=== PATIENT | female | born 2005 | race Caucasian/White ===

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

== ENCOUNTER 2024-04-28 02:46 | Emergency (ER) | payer OTHER ==
--- NOTE | 2024-04-28 03:07 | ED ---
General Adult HPI - General Source: patient, RN notes reviewed, old records reviewed Mode of arrival: ambulatory Limitations: no limitations <Toro Castro - Last Filed: 04/28/24 04:04> <Freddie Abdullahi - Last Filed: 04/28/24 15:48> - General Chief complaint: Vaginal Bleeding Stated complaint: vaginal bleeding Time Seen by Provider: 04/28/24 02:49 - History of Present Illness Initial comments: 18-year-old female presenting with vaginal bleeding. Patient states that she is approximately 12 weeks . She has had a ultrasound performed as an outpatient which she states confirmed intrauterine . She has not yet followed with obstetrics this was performed at a center. Patient states that this evening she developed vaginal bleeding after intercourse. No abdominal pain. No other symptoms reported. (Toro Castro) - Related Data Home Medications Medication Instructions Recorded Confirmed Methylphenidate HCl [Concerta] 54 mg PO DAILY 10/18/15 10/18/15 Previous Rx's Medication Instructions Recorded Azithromycin [Zithromax] 5 ml PO DIRECTED #20 ml 10/18/15 Allergies Allergy/AdvReac Type Severity Reaction Status Date / Time No Known Allergies Allergy Verified 04/28/24 02:49 Review of Systems ROS Other: All systems not noted in ROS Statement are negative. <Toro Castro - Last Filed: 04/28/24 04:04> ROS Other: All systems not noted in ROS Statement are negative. <Freddie Abdullahi - Last Filed: 04/28/24 15:48> ROS Statement: Those systems with pertinent positive or pertinent negative responses have been documented in the HPI. Past Medical History Past Medical History: No Reported History Additional Past Medical History / Comment(s): bipolar ptsd History of Any Multi-Drug Resistant Organisms: None Reported Past Surgical History: No Surgical Hx Reported Past Psychological History: ADD/ADHD, Bipolar, Depression, PTSD Smoking Status: Never smoker Past Alcohol Use History: None Reported Past Drug Use History: None Reported <Toro Castro - Last Filed: 04/28/24 04:04> General Exam Limitations: no limitations General appearance: alert, in no apparent distress Head exam: Present: atraumatic, normocephalic Eye exam: Present: normal appearance, PERRL ENT exam: Present: normal exam Neck exam: Present: normal inspection. Absent: tenderness, meningismus Respiratory exam: Present: normal lung sounds bilaterally. Absent: respiratory distress, wheezes Cardiovascular Exam: Present: regular rate, normal rhythm GI/Abdominal exam: Present: soft. Absent: distended, tenderness, guarding, rebound Extremities exam: Present: normal inspection, normal capillary refill Neurological exam: Present: alert, oriented X3 Psychiatric exam: Present: normal affect, normal mood Skin exam: Present: warm, dry, intact, normal color. Absent: pallor <Toro Catsro - Last Filed: 04/28/24 04:04> Course Vital Signs 04/28/24 04/28/24 04/28/24 02:47 03:31 04:30 Temperature 98.3 F Pulse Rate 87 77 79 Respiratory 18 19 18 Rate Blood Pressure 129/85 113/77 112/74 O2 Sat by Pulse 100 98 99 Oximetry 04/28/24 04/28/24 06:01 09:14 Temperature 98.1 F 98.1 F Pulse Rate 79 97 Respiratory 18 17 Rate Blood Pressure 101/62 112/79 O2 Sat by Pulse 100 98 Oximetry Medical Decision Making - Lab Data Result diagrams: 04/28/24 03:14 04/28/24 03:14 <Toro Castro - Last Filed: 04/28/24 04:04> - Lab Data Result diagrams: 04/28/24 03:14 04/28/24 03:14 <Freddie Abdullahi - Last Filed: 04/28/24 15:48> - Medical Decision Making Was pt. sent in by a medical professional or institution (, PA, PHARMACEUTICAL WORKER, urgent care, hospital, or detention...) When possible be specific @ -No Did you speak to anyone other than the patient for history (EMS, parent, family, police, friend...)? What history was obtained from this source @ -No Did you review nursing and triage notes (agree or disagree)? Why? @ -I reviewed and agree with nursing and triage notes Were old charts reviewed (outside hosp., previous admission, EMS record, old EKG, old radiological studies, urgent care reports/EKG's, detention records)? Report findings @ -No old charts were reviewed Differential Vaginal Bleeding: Spontaneous , threatened , molar , ectopic , bloody show, incompetent cervix, abruptioplacenta, placenta previa, uterine rupture, dysfunctional uterine bleeding, hemorrhage, uterine fibroids, this is not meant to be an all-inclusive list. EKG interpreted by me (3pts min.). @ -As above X-rays interpreted by me (1pt min.). @ -None done CT interpreted by me (1pt min.). @ -None done U/S interpreted by me (1pt. min.). @ -Ultrasound ordered, results pending What testing was considered but not performed or refused? (CT, X-rays, U/S, labs)? Why? @ -None What meds were considered but not given or refused? Why? @ -None Did you discuss the management of the patient with other professionals (professionals i.e. , PA, PHARMACEUTICAL WORKER, lab, RT, psych nurse, social insurance adviser, vehicle check in clerk, teacher, chief creative officer, case worker)? Give summary @ -No Was smoking cessation discussed for >3mins.? @ -No Was critical care preformed (if so, how long)? @ -No Were there social determinants of health that impacted care today? How? (Homelessness, low income, unemployed, alcoholism, drug addiction, t ransportation, low edu. Level, literacy, decrease access to med. care, retirement, rehab)? @ -No Was there de-escalation of care discussed even if they declined (Discuss DNR or withdrawal of care, Hospice)? DNR status @ -No What co-morbidities impacted this encounter? (DM, HTN, Smoking, COPD, CAD, Cance r, CVA, ARF, Chemo, Hep., AIDS, mental health diagnosis, sleep apnea, morbid obesity)? @ -None Was patient admitted / discharged? Hospital course, mention meds given and route, prescriptions, significant lab abnormalities, going to OR and other pertinent info. @ -[18-year-old female stating she is approximately 12 weeks with vaginal bleeding. Patient has a negative blood and does require RhoGAM. Hemoglobin is stable. Laboratory testing is otherwise unremarkable. Ultrasound has been ordered awaiting this study. Care [facility] shift [facility] Patient signed out to me pending results of ultrasound. Patient is a 18-year-old female who presents with vaginal spotting and bleeding. She is approximately 12 weeks . G2, P0. Prior elective . Denies any other acute complaints. Presents for further evaluation. Workup so far shows normal laboratory studies. Beta-hCG is 25,000. Ultrasound is interpreted by myself reveals an intrauterine however it appears to be possible demise as it does not have a heart rate, and it is only measuring at 8 weeks. Patient had a prior ultrasound at 6 weeks which measured at 6 weeks gestational age. I discussed with the patient. Discussed that it appears she had a missed as well as intrauterine demise. She has no CAREER DEVELOPMENT ENGINEER follow-up. I spoke with Dr. Washington on the phone who recommended patient be discharged home, follow-up with her in the office on Friday. If worsening bleeding or uncomfortable with the amount of bleeding patient can return to the emergency department. Cussed this with the patient and she was in agreement this plan. Patient be discharged home at this time. Strict return precautions discussed. I did overemphasize the need to follow-up with Dr. Washington as even if she has her miscarriage she needs to follow-up with CAREER DEVELOPMENT ENGINEER. She expressed understanding. I instructed the patient to follow up with their PCP in the next 1-3 days. I provided contact information for follow up with Dr. Washington. I explained that the patient should return to the emergency department if they experience any wo rsening symptoms. Strict return precautions were discussed with the patient. The patient expressed understanding of these instructions. I answered all questions that the patient had. The patient was discharged home in good condition with their prescriptions and follow up information. Diagnosis/symptom? @ -Intrauterine demise, missed /miscarriage Acute, or Chronic, or Acute on Chronic? @ -Acute Uncomplicated (without systemic symptoms) or Complicated (systemic symptoms)? @ -Complicated Side effects of treatment? @ -None Exacerbation, Progression, or Severe Exacerbation] @ -No Poses a threat to life or bodily function? @ -Potentially, yes if not addressed. (Frdedie Abdullahi) - Lab Data Lab Results 04/28/24 04/28/24 04/28/24 Range/Units 03:00 03:00 03:14 WBC 7.7 (4.0-11.0) k/uL RBC 4.58 (3.80-5.40) m/uL Hgb 13.5 (11.4-16.0) gm/dL Hct 39.2 (34.0-46.0) % MCV 85.5 (80.0-100.0) fL MCH 29.5 (25.0-35.0) pg MCHC 34.5 (31.0-37.0) g/dL RDW 12.8 (11.5-15.5) % Plt Count 260 (150-450) k/uL MPV 7.6 Neutrophils % 50 % Lymphocytes % 39 % Monocytes % 7 % Eosinophils % 1 % Basophils % 0 % Neutrophils # 3.9 (1.3-7.7) k/uL Lymphocytes # 3.0 (1.0-4.8) k/uL Monocytes # 0.5 (0-1.0) k/uL Eosinophils # 0.1 (0-0.7) k/uL Basophils # 0.0 (0-0.2) k/uL Sodium (137-145) mmol/L Potassium (3.5-5.1) mmol/L Chloride (98-107) mmol/L Carbon Dioxide (22-30) mmol/L Anion Gap mmol/L BUN (7-17) mg/dL Creatinine (0.52-1.04) mg/dL Est GFR (CKD-EPI)AfAm (>60 ml/min/1.73 sqM) Est GFR (CKD-EPI)NonAf (>60 ml/min/1.73 sqM) Glucose (74-99) mg/dL Calcium (8.4-10.2) mg/dL Total Bilirubin (0.2-1.3) mg/dL AST (14-36) U/L ALT (4-34) U/L Alkaline Phosphatase (38-126) U/L Total Protein (6.3-8.2) g/dL Albumin (3.5-5.0) g/dL HCG, Quant mIU/mL Urine Color Urine Appearance (Clear) Urine pH (5.0-8.0) Ur Specific [place] (1.001-1.035) Urine Protein (Negative) Urine Glucose (UA) (Negative) Urine Ketones (Negative) Urine Blood (Negative) Urine Nitrite (Negative) Urine Bilirubin (Negative) Urine Urobilinogen (<2.0) mg/dL Ur Leukocyte Esterase (Negative) Urine RBC (0-5) /hpf Ur Squamous Epith Cells (0-4) /hpf Urine Bacteria (None) /hpf Urine Mucus (None) /hpf Blood Type A Negative Blood Type Recheck No Previous Record Bld Type Recheck Status ABR ONLY Antibody Screen NEGATIVE 04/28/24 04/28/24 Range/Units 03:14 03:31 WBC (4.0-11.0) k/uL RBC (3.80-5.40) m/uL Hgb (11.4-16.0) gm/dL Hct (34.0-46.0) % MCV (80.0-100.0) fL MCH (25.0-35.0) pg MCHC (31.0-37.0) g/dL RDW (11.5-15.5) % Plt Count (150-450) k/uL MPV Neutrophils % % Lymphocytes % % Monocytes % % Eosinophils % % Basophils % % Neutrophils # (1.3-7.7) k/uL Lymphocytes # (1.0-4.8) k/uL Monocytes # (0-1.0) k/uL Eosinophils # (0-0.7) k/uL Basophils # (0-0.2) k/uL Sodium 137 (137-145) mmol/L Potassium 4.0 (3.5-5.1) mmol/L Chloride 109 H (98-107) mmol/L Carbon Dioxide 22 (22-30) mmol/L Anion Gap 6 mmol/L BUN 8 (7-17) mg/dL Creatinine 0.50 L (0.52-1.04) mg/dL Est GFR (CKD-EPI)AfAm >90 (>60 ml/min/1.73 sqM) Est GFR (CKD-EPI)NonAf >90 (>60 ml/min/1.73 sqM) Glucose 96 (74-99) mg/dL Calcium 9.6 (8.4-10.2) mg/dL Total Bilirubin 0.4 (0.2-1.3) mg/dL AST 24 (14-36) U/L ALT 10 (4-34) U/L Alkaline Phosphatase 45 (38-126) U/L Total Protein 7.4 (6.3-8.2) g/dL Albumin 4.6 (3.5-5.0) g/dL HCG, Quant 20934.1 mIU/mL Urine Color Colorless Urine Appearance Clear (Clear) Urine pH 6.5 (5.0-8.0) Ur Specific [place] 1.017 (1.001-1.035) Urine Protein Negative (Negative) Urine Glucose (UA) Negative (Negative) Urine Ketones Negative (Negative) Urine Blood Moderate H (Negative) Urine Nitrite Negative (Negative) Urine Bilirubin Negative (Negative) Urine Urobilinogen <2.0 (<2.0) mg/dL Ur Leukocyte Esterase Negative (Negative) Urine RBC 12 H (0-5) /hpf Ur Squamous Epith Cells <1 (0-4) /hpf Urine Bacteria Rare H (None) /hpf Urine Mucus Rare H (None) /hpf Blood Type Blood Type Recheck Bld Type Recheck Status Antibody Screen Disposition <Toro Castro - Last Filed: 04/28/24 04:04> Is patient prescribed a controlled substance at d/c from ED?: No Time of Disposition: 08:30 <Freddie Abdullahi - Last Filed: 04/28/24 15:48> Clinical Impression: demise, Missed Disposition: HOME SELF-CARE Condition: Fair Additional Instructions: You have intrauterine demise with missed miscarriage. You can expect continued vaginal spotting and bleeding and may miscarry. You must follow-up with CAREER DEVELOPMENT ENGINEER no matter what. Please return if concerned regarding the bleeding. Please follow-up with Dr. Washington on Friday next week.The date for follow-up is May 03, 2024. Return if any worsening symptoms. Referrals: None,Stated [Primary Care Provider] - 1-2 days Cnocetta Washington DO [Doctor of Osteopathic Medicine] - 1-2 days
[2024-04-28 03:25] LABS: Basophils % (A) 0 %; Eosinophils # (A) 0.1 k/uL (0-0.7); Eosinophils % (A) 1 %; HCT 39.2 % (34.0-46.0); HGB 13.5 gm/dL (11.4-16.0); Lymphocytes % (A) 39 %; MCH 29.5 pg (25.0-35.0); MCHC 34.5 g/dL (31.0-37.0); MCV 85.5 fL (80.0-100.0); Mean Platelet Volume 7.6; Monocytes # (A) 0.5 k/uL (0-1.0); Monocytes % (A) 7 %; Neutrophils # (A) 3.9 k/uL (1.3-7.7); Neutrophils % (A) 50 %; Platelet Count 260 k/uL (150-450); RBC 4.58 m/uL (3.80-5.40); RDW 12.8 % (11.5-15.5); WBC 7.7 k/uL (4.0-11.0)
[2024-04-28 03:36] LABS: ALT 10 U/L (4-34); AST 24 U/L (14-36); African American GFR (CKD) >90 (>60 ml/min/1.73 sqM); Albumin 4.6 g/dL (3.5-5.0); Alkaline Phosphatase 45 U/L (38-126); Anion Gap 6 mmol/L; Blood Urea Nitrogen 8 mg/dL (7-17); Calcium 9.6 mg/dL (8.4-10.2); Carbon Dioxide 22 mmol/L (22-30); Chloride 109 mmol/L (98-107); Glucose 96 mg/dL (74-99); Non-African American GFR(CKD) >90 (>60 ml/min/1.73 sqM); Sodium 137 mmol/L (137-145); Total Bilirubin 0.4 mg/dL (0.2-1.3); Total Protein 7.4 g/dL (6.3-8.2)
[2024-04-28 03:39] LABS: Appearance,Urine Clear (Clear); Bacteria,Urine Rare /hpf; Bilirubin,Urine Negative (Negative); Blood,Urine Moderate (Negative); Color,Urine Colorless; Glucose,Urine (UA) Negative (Negative); Ketones,Urine Negative (Negative); Leukocyte Esterase,Urine Negative (Negative); Mucus,Urine Rare /hpf; Nitrite,Urine Negative (Negative); PH, Urine 6.5 (5.0-8.0); Protein,Urine Negative (Negative); RBC,Urine 12 /hpf (0-5); Specific Gravity,Urine 1.017 (1.001-1.035); Squamous Epithelial Cell,Urine <1 /hpf (0-4); Urobilinogen,Urine <2.0 mg/dL (<2.0)
[2024-04-28 04:28] LABS: HCG,Quantitative Serum 25287.1 mIU/mL
[2024-04-28] MEDS: Rhogam IMMUNE GLOBULIN 1,500 UNIT/1 ML IM ONE (04:52)
[2024-04-28 06:04] VITALS: TEMP 98.1
--- NOTE | 2024-04-28 07:48 | US ---
EXAMINATION TYPE: Transabdominal DATE OF EXAM: 04/28/2024 7:32 AM COMPARISON: NONE CLINICAL INDICATION: Female, 18 years old with history of Vaginal bleeding in ; Bleeding sin ce yesterday. G1. Patient thinks she is about 12-13 weeks . TECHNIQUE: Transvaginal (TV) and Transabdominal (TA) with grayscale and color Doppler imaging includi ng first trimester . FINDINGS: EXAM MEASUREMENTS: GESTATIONAL AGE / DATING Physician Established: Unknown Dates by LMP: Unknown Dates by First Scan: This is first scan at this facility. Dates by Current Scan for: (8 weeks/0 days) EDC: 12/08/2024 - by CRL measurement. No heart tones seen. MATERNAL ANATOMY Uterus: 10.6 x 8.3 x 6.3 cm. Subcentimeter anechoic areas in cervix. Right Ovary: 3.1 x 1.5 x 2.1 cm Left Ovary: 3.5 x 1.9 x 1.2 cm Post CDS / Adnexa: Appear wnl Presence of free fluid: None seen Presence of corpus luteal cyst: not seen Presence of subchorionic bleed: Complex area seen adjacent to the gestational sac: 1.2 x 0.8 x 1.3 cm transvaginal measurement. GESTATION / SURVEY CRL: 1.56 cm (8 weeks/0 days) MSD: 4.55 cm (10 weeks/3 days). Appears slightly irregular. Yolk Sac (normal less than 6mm): not seen Heart Rate: Not visualized IUP: No heart tones seen at this time within pole. Date of LMP: unknown Beta HcG (if available): 25,287.1 mIU/mL IMPRESSION: Intrauterine with ultrasound age of 8 weeks 0 days by crown-rump length. heart rate i s not detected at this time, concerning for demise. Close clinical follow-up with serial beta h CG and short-term follow-up ultrasound is recommended. [facility], , 04/28/2024 7:45 AM
[2024-04-28 09:21] VITALS: BP 112/79; PULSE 97; RESP 17
== END 2024-04-28 09:22 | disposition home or self-care (01) ==
LOC: EC 02:46
CPT/HCPCS: 36415; 76801; 76817; 80053; 81001; 84702; 85025; 86850; 86900; 86901; 96372; 99284

== ENCOUNTER 2024-05-14 17:52 | Emergency (ER) | payer SELFPAY ==
[2024-05-14 18:04] VITALS: TEMP 98.3
--- NOTE | 2024-05-14 18:40 | ED ---
Female Urogenital HPI - General Chief complaint: Vaginal Bleeding Stated complaint: Vaginal bleeding Time Seen by Provider: 05/14/24 18:12 Source: patient, RN notes reviewed Mode of arrival: ambulatory Limitations: no limitations - History of Present Illness Initial comments: 18-year-old female presenting to the ER for vaginal bleeding x [address] [facility] she was seen in the ER 2 weeks ago where she was told she was having a miscarriage. Patient had mild spotting at that time however reports over the past day bleeding has increased and is now bleeding through approximately 1 pad every 4 hours. Also admits some pelvic cramping over the past few days. - Related Data Home Medications Medication Instructions Recorded Confirmed Methylphenidate HCl [Concerta] 54 mg PO DAILY 10/18/15 10/18/15 Previous Rx's Medication Instructions Recorded Azithromycin [Zithromax] 5 ml PO DIRECTED #20 ml 10/18/15 Allergies Allergy/AdvReac Type Severity Reaction Status Date / Time No Known Allergies Allergy Verified 04/28/24 02:49 Review of Systems ROS Statement: Those systems with pertinent positive or pertinent negative responses have been documented in the HPI. ROS Other: All systems not noted in ROS Statement are negative. Past Medical History Past Medical History: No Reported History Additional Past Medical History / Comment(s): bipolar ptsd, miscarriage Apr 2024 History of Any Multi-Drug Resistant Organisms: None Reported Past Surgical History: No Surgical Hx Reported Past Psychological History: ADD/ADHD, Bipolar, Depression, PTSD Smoking Status: Never smoker Past Alcohol Use History: None Reported Past Drug Use History: None Reported General Exam Limitations: no limitations General appearance: alert, in no apparent distress Head exam: Present: atraumatic, normocephalic, normal inspection GI/Abdominal exam: Present: soft, normal bowel sounds. Absent: distended, tenderness, guarding, rebound, rigid Neurological exam: Present: alert, oriented X3 Psychiatric exam: Present: normal affect, normal mood Skin exam: Present: warm, dry, intact, normal color. Absent: rash Course Vital Signs 05/14/24 05/14/24 05/14/24 18:01 20:15 21:54 Temperature 98.3 F Pulse Rate 101 H 98 64 Respiratory 18 16 16 Rate Blood Pressure 120/74 108/74 110/62 O2 Sat by Pulse 100 100 98 Oximetry Medical Decision Making - Medical Decision Making Was pt. sent in by a medical professional or institution (VAUGHN Montero, [employer], urgent care, hospital, or care home...) When possible be specific @ -No Did you speak to anyone other than the patient for history (EMS, parent, family, police, friend...)? What history was obtained from this source @ -No Did you review nursing and triage notes (agree or disagree)? Why? @ -I reviewed and agree with nursing and triage notes Were old charts reviewed (outside hosp., previous admission, EMS record, old EKG, old radiological studies, urgent care reports/EKG's, care home records)? Report findings @ -No old charts were reviewed Differential Diagnosis (chest pain, altered mental status, abdominal pain women, abdominal pain men, vaginal bleeding, weakness, fever, dyspnea, syncope, headache, dizziness, GI bleed, back pain, seizure, CVA, palpatations, mental health, musculoskeletal)? @ -Differential Vaginal Bleeding: Spontaneous , threatened , molar , ectopic , bloody show, incompetent cervix, abruptioplacenta, placenta previa, uterine rupture, dysfunctional uterine bleeding, hemorrhage, uterine fibroids, this is not meant to be an all-inclusive list. EKG interpreted by me (3pts min.). @ -None X-rays interpreted by me (1pt min.). @ -None done CT interpreted by me (1pt min.). @ -None done U/S interpreted by me (1pt. min.). @ -Ultrasound pelvis reveals heterogeneous and thickened endometrium without evidence for intrauterine sac What testing was considered but not performed or refused? (CT, X-rays, U/S, labs)? Why? @ -None What meds were considered but not given or refused? Why? @ -RhoGAM not given as it was given 2 weeks ago Did you discuss the management of the patient with other professionals (professionals i.e. VAUGHN Montero, [employer]OC[employer], lab, RT, psych nurse, social work program coordinator, software designer, teacher, customer service security officer, showcase maker)? Give summary @ -No Was smoking cessation discussed for >3mins.? @ -No Was critical care preformed (if so, how long)? @ -No Were there social determinants of health that impacted care today? How? (Homelessness, low income, unemployed, alcoholism, drug addiction, transportation, low edu. Level, literacy, decrease access to med. care, long-term, rehab)? @ -No Was there de-escalation of care discussed even if they declined (Discuss DNR or withdrawal of care, Hospice)? DNR status @ -No What co-morbidities impacted this encounter? (DM, HTN, Smoking, COPD, CAD, Cancer, CVA, ARF, Chemo, Hep., AIDS, mental health diagnosis, sleep apnea, m orbid obesity)? @ -None Was patient admitted / discharged? Hospital course, mention meds given and r oute, prescriptions, significant lab abnormalities, going to OR and other pertinent info. @ -Discharged. This is a 18-year-old female presenting with vaginal bleeding in . Patient was seen in ER when this began 2 weeks ago and was diagnosed with a miscarriage. States vaginal bleeding has been increasing in severity over the past day. No red flag symptoms. Vital signs are within accep table limits. Abdomen is soft and nontender. Lab work including CBC, CMP, lactic unremarkable. Hemoglobin stable at 13.3. Beta hCG 2796 today, significantly decreased from 25,287 on 1016. Urinalysis reveals large amount of blood. Pelvic ultrasound reveals heterogeneous and thickened endometrium without evidence for intrauterine sac. Results discussed with patient. Diagnosis of threatened miscarriage discussed with patient. Advise close follow-up with OB next week to trend hCG levels down to 0 and repeat ultrasound in 1 week. Return precautions and supportive care discussed and patient is agreeable to plan. Case was discussed with my ED attending Dr. Gallardo. Patient discharged in stable condition. Undiagnosed new problem with uncertain prognosis? @ -No Drug Therapy requiring intensive monitoring for toxicity (Heparin, Nitro, Insulin, Cardizem)? @ -No Were any procedures done? @ -No Diagnosis/symptom? @ -Threatened Acute, or Chronic, or Acute on Chronic? @ -Acute Uncomplicated (without systemic symptoms) or Complicated (systemic symptoms)? @ -Uncomplicated Side effects of treatment? @ -No Exacerbation, Progression, or Severe Exacerbation? @ -No Poses a threat to life or bodily function? How? (Chest pain, USA, LA, pneumonia, PE, COPD, DKA, ARF, appy, cholecystitis, CVA, Diverticulitis, Homicidal, Suicidal, threat to staff... and all critical care pts) @ -No - Lab Data Result diagrams: 05/14/24 18:51 05/14/24 18:51 Lab Results 05/14/24 05/14/24 05/14/24 Range/Units 18:51 18:51 18:51 WBC 8.2 (4.0-11.0) k/uL RBC 4.49 (3.80-5.40) m/uL Hgb 13.3 (11.4-16.0) gm/dL Hct 38.7 (34.0-46.0) % MCV 86.1 (80.0-100.0) fL MCH 29.5 (25.0-35.0) pg MCHC 34.3 (31.0-37.0) g/dL RDW 12.3 (11.5-15.5) % Plt Count 264 (150-450) k/uL MPV 7.6 Neutrophils % 73 % Lymphocytes % 19 % Monocytes % 5 % Eosinophils % 1 % Basophils % 0 % Neutrophils # 6.0 (1.3-7.7) k/uL Lymphocytes # 1.6 (1.0-4.8) k/uL Monocytes # 0.4 (0-1.0) k/uL Eosinophils # 0.1 (0-0.7) k/uL Basophils # 0.0 (0-0.2) k/uL Sodium 138 (137-145) mmol/L Potassium 3.9 (3.5-5.1) mmol/L Chloride 110 H (98-107) mmol/L Carbon Dioxide 23 (22-30) mmol/L Anion Gap 5 mmol/L BUN 7 (7-17) mg/dL Creatinine 0.49 L (0.52-1.04) mg/dL Est GFR (CKD-EPI)AfAm >90 (>60 ml/min/1.73 sqM) Est GFR (CKD-EPI)NonAf >90 (>60 ml/min/1.73 sqM) Glucose 93 (74-99) mg/dL Plasma Lactic Acid Juan [place] (0.7-2.0) mmol/L Calcium 9.0 (8.4-10.2) mg/dL Total Bilirubin 0.6 (0.2-1.3) mg/dL AST 26 (14-36) U/L ALT 13 (4-34) U/L Alkaline Phosphatase 50 (38-126) U/L Total Protein 7.1 (6.3-8.2) g/dL Albumin 4.4 (3.5-5.0) g/dL HCG, Quant 2796.0 mIU/mL Urine Color Urine Appearance (Clear) Urine pH (5.0-8.0) Ur Specific [place] (1.001-1.035) Urine Protein (Negative) Urine Glucose (UA) (Negative) Urine Ketones (Negative) Urine Blood (Negative) Urine Nitrite (Negative) Urine Bilirubin (Negative) Urine Urobilinogen (<2.0) mg/dL Ur Leukocyte Esterase (Negative) Urine RBC (0-5) /hpf Urine WBC (0-5) /hpf Ur Squamous Epith Cells (0-4) /hpf Urine Mucus (None) /hpf Blood Type A Negative Blood Type Recheck A Neg Bld Type Recheck Status No 05/14/24 05/14/24 Range/Units 18:51 18:51 WBC (4.0-11.0) k/uL RBC (3.80-5.40) m/uL Hgb (11.4-16.0) gm/dL Hct (34.0-46.0) % MCV (80.0-100.0) fL MCH (25.0-35.0) pg MCHC (31.0-37.0) g/dL RDW (11.5-15.5) % Plt Count (150-450) k/uL MPV Neutrophils % % Lymphocytes % % Monocytes % % Eosinophils % % Basophils % % Neutrophils # (1.3-7.7) k/uL Lymphocytes # (1.0-4.8) k/uL Monocytes # (0-1.0) k/uL Eosinophils # (0-0.7) k/uL Basophils # (0-0.2) k/uL Sodium (137-145) mmol/L Potassium (3.5-5.1) mmol/L Chloride (98-107) mmol/L Carbon Dioxide (22-30) mmol/L Anion Gap mmol/L BUN (7-17) mg/dL Creatinine (0.52-1.04) mg/dL Est GFR (CKD-EPI)AfAm (>60 ml/min/1.73 sqM) Est GFR (CKD-EPI)NonAf (>60 ml/min/1.73 sqM) Glucose (74-99) mg/dL Plasma Lactic Acid [place] 0.6 L (0.7-2.0) mmol/L Calcium (8.4-10.2) mg/dL Total Bilirubin (0.2-1.3) mg/dL AST (14-36) U/L ALT (4-34) U/L Alkaline Phosphatase (38-126) U/L Total Protein (6.3-8.2) g/dL Albumin (3.5-5.0) g/dL HCG, Quant mIU/mL Urine Color Light Red Urine Appearance Cloudy H (Clear) Urine pH 7.0 (5.0-8.0) Ur Specific [place] 1.024 (1.001-1.035) Urine Protein Trace H (Negative) Urine Glucose (UA) Negative (Negative) Urine Ketones Negative (Negative) Urine Blood Large H (Negative) Urine Nitrite Negative (Negative) Urine Bilirubin Negative (Negative) Urine Urobilinogen 2.0 (<2.0) mg/dL Ur Leukocyte Esterase Small H (Negative) Urine RBC >182 H (0-5) /hpf Urine WBC 4 (0-5) /hpf Ur Squamous Epith Cells 3 (0-4) /hpf Urine Mucus Few H (None) /hpf Blood Type Blood Type Recheck Bld Type Recheck Status Disposition Clinical Impression: Threatened Disposition: HOME SELF-CARE Condition: Stable Instructions (If sedation given, give patient instructions): Threatened Miscarriage (ED) Additional Instructions: Follow-up with Dr. Washington on Friday. Please return to the Emergency Department if symptoms worsen or any other concerns. Is patient prescribed a controlled substance at d/c from ED?: No Referrals: None,Stated [Primary Care Provider] - 1-2 days Time of Disposition: 21:41
--- NOTE | 2024-05-14 19:57 | US ---
EXAMINATION TYPE: Transabdominal DATE OF EXAM: 05/14/2024 7:21 PM COMPARISON: US CLINICAL INDICATION: Female, 18 years old with history of vaginal bleeding in ; Pt states he janine vaginal bleeding with clots that started today/ pt had probable demise on prior ultrasound 2 weeks ago TECHNIQUE: Transabdominal (TA) with grayscale and color Doppler imaging including first trimester pre gnancy. FINDINGS: EXAM MEASUREMENTS: GESTATIONAL AGE / DATING Physician Established: Not yet established Dates by LMP: LMP unknown Dates by First Scan: (10 weeks/2 days) EDC: 12/08/2024 Dates by Current Scan for: No IUP seen at this time MATERNAL ANATOMY Uterus: 7.5 x 4.9 x 5.8 cm Right Ovary: 2.6 x 1.7 x 2.1 cm Left Ovary: 2.3 x 1.0 x 2.6 cm Post CDS / Adnexa: wnl Presence of free fluid: No GESTATION / SURVEY IUP: No IUP seen at this time Date of LMP: Unknown Beta HcG (if available): Not available at this time No evidence of IUP- endo thickness= 2.5 cm, thickened and heterogeneous without evidence of increas ed blood flow IMPRESSION: Heterogenous and thickened endometrium without evidence for intrauterine gestational sac given patien t reported dates of 10 weeks 2 days findings most compatible with demise with retained products of conception. Close clinical follow-up with serial beta hCG recommended. [facility], Workstation: [id number], 05/14/2024 7:54 PM
[2024-05-14 19:58] LABS: Basophils % (A) 0 %; Eosinophils # (A) 0.1 k/uL (0-0.7); Eosinophils % (A) 1 %; HCT 38.7 % (34.0-46.0); HGB 13.3 gm/dL (11.4-16.0); Lymphocytes # (A) 1.6 k/uL (1.0-4.8); Lymphocytes % (A) 19 %; MCH 29.5 pg (25.0-35.0); MCHC 34.3 g/dL (31.0-37.0); MCV 86.1 fL (80.0-100.0); Mean Platelet Volume 7.6; Monocytes # (A) 0.4 k/uL (0-1.0); Monocytes % (A) 5 %; Neutrophils % (A) 73 %; Platelet Count 264 k/uL (150-450); RBC 4.49 m/uL (3.80-5.40); RDW 12.3 % (11.5-15.5); WBC 8.2 k/uL (4.0-11.0)
[2024-05-14 20:16] VITALS: RESP 16
[2024-05-14 20:21] LABS: ALT 13 U/L (4-34); AST 26 U/L (14-36); African American GFR (CKD) >90 (>60 ml/min/1.73 sqM); Albumin 4.4 g/dL (3.5-5.0); Alkaline Phosphatase 50 U/L (38-126); Anion Gap 5 mmol/L; Blood Urea Nitrogen 7 mg/dL (7-17); Carbon Dioxide 23 mmol/L (22-30); Chloride 110 mmol/L (98-107); Glucose 93 mg/dL (74-99); Non-African American GFR(CKD) >90 (>60 ml/min/1.73 sqM); Potassium 3.9 mmol/L (3.5-5.1); Sodium 138 mmol/L (137-145); Total Bilirubin 0.6 mg/dL (0.2-1.3); Total Protein 7.1 g/dL (6.3-8.2)
[2024-05-14 20:25] LABS: Appearance,Urine Cloudy (Clear); Bilirubin,Urine Negative (Negative); Blood,Urine Large (Negative); Color,Urine Light Red; Glucose,Urine (UA) Negative (Negative); Ketones,Urine Negative (Negative); Leukocyte Esterase,Urine Small (Negative); Mucus,Urine Few /hpf; Nitrite,Urine Negative (Negative); Protein,Urine Trace (Negative); RBC,Urine >182 /hpf (0-5); Specific Gravity,Urine 1.024 (1.001-1.035); Squamous Epithelial Cell,Urine 3 /hpf (0-4); WBC,Urine 4 /hpf (0-5)
[2024-05-14 21:55] VITALS: BP 110/62; PULSE 64
== END 2024-05-14 21:55 | disposition home or self-care (01) ==
LOC: EC 17:52
DX: O20.0 Threatened abortion (principal); Z3A.10 10 weeks gestation of pregnancy
CPT/HCPCS: 36415; 76801; 80053; 81001; 83605; 84702; 85025; 86900; 86901; 99284